=== PATIENT | female | born 1960 | race Caucasian/White ===

== ENCOUNTER 2020-02-21 08:50 | Outpatient (CLI) | payer BC, SELFPAY ==
--- NOTE | ~2020-02-21 | MM_ITS ---
EXAMINATION: MM screening [facility] BI w catherine HISTORY: Screening mammogram TECHNIQUE: Craniocaudal and mediolateral oblique 3-D tomosynthesis images were obtained and synthetic 2-D images were generated. CAD analysis was submitted and interpreted. COMPARISON: No prior mammogram is available for comparison at this institution. BREAST PARENCHYMAL COMPOSITION: There are scattered areas of fibroglandular density. FINDINGS: There is no evidence of suspicious mass, calcification, or architectural distortion to sugg est malignancy in either breast. There has been no suspicious interval change. IMPRESSION: 1. No mammographic evidence of malignancy. 2. Recommend routine screening mammography in one year. BI-RADS Category 1: Negative Reviewed, dictated and finalized at location B. BLASTER
== END 2020-02-21 08:51 | disposition home or self-care (01) ==
LOC: ANHIMG 08:52
PROVIDERS: PCP Emergency Medicine; Visit Provider Emergency Medicine
DX: Z12.31 Encounter for screening mammogram for malignant neoplasm of breast (principal)
CPT/HCPCS: 77063; 77067

== ENCOUNTER 2021-11-11 08:01 | Outpatient (CLI) | payer BC, SELFPAY ==
--- NOTE | ~2021-11-11 | MM_ITS ---
EXAMINATION: MM screening [facility] BI w catherine HISTORY: Screening mammogram TECHNIQUE: Craniocaudal and mediolateral oblique 3-D tomosynthesis images were obtained and synthetic 2-D images were generated. CAD analysis was submitted and interpreted. COMPARISON: 02/21/2020, 02/14/2018, 11/25/2016 bilateral screening mammogram examinations BREAST PARENCHYMAL COMPOSITION: There are scattered areas of fibroglandular density. FINDINGS: There is no evidence of suspicious mass, calcification, or architectural distortion to sugg est malignancy in either breast. There has been no suspicious interval change. IMPRESSION: 1. No mammographic evidence of malignancy. 2. Recommend routine screening mammography in one year. BI-RADS Category 1: Negative Reviewed, dictated and finalized at location A.
== END 2021-11-11 08:02 | disposition home or self-care (01) ==
PROVIDERS: PCP Family Medicine; Visit Provider Physician Assistant Medical
DX: Z12.31 Encounter for screening mammogram for malignant neoplasm of breast (principal)
CPT/HCPCS: 77063; 77067

== ENCOUNTER 2022-02-27 00:46 | Day surgery (SDC) | payer BC, SELFPAY ==
[2022-02-18 10:56] VITALS: BMI 37.0
--- NOTE | 2022-02-26 13:52 | WPDANESEPPF ---
Anes - Initial Pre Proc Eval Procedure: Operation Date: 02/27/22 11:30 Proposed Procedures p Screening Colonoscopy - Fransisco Uriostegui MD Date/Time: 02/26/22 13:52 Surgeon: Fransisco Uriostegui MD Pre Op Diagnosis: neoplasm screening Patient Data Age: 61 Gender: F Height: 1.75 m Weight: 113.6 kg Allergies Allergy/AdvReac Type Severity Reaction Status Date / Time sulfanilamide Allergy Severe DIARRHEA, Verified 02/27/22 10:47 HIVES Home Medications Medication Instructions Recorded Confirmed Type fluticasone propionate 50 See Rx Instructions .Route 07/24/20 02/27/22 Rx mcg/actuation nasal .COMPLEX #15.8 mL spray,suspension multivitamin 1 cap PO DAILY 02/18/22 02/27/22 History Patient hx anesthesia problems: none Family hx anesthesia problems: none Results Review: All pre-operative results and documents have been reviewed as part of the pre-operative evaluation. [facility] Past Medical History Medical History (Updated 09/30/21 @ 09:29 by Teri Patino [facility]) Acute rhinosinusitis Anxiety and depression Bursitis of hip, right Cataracts, bilateral Chronic frontal sinusitis Cough Encounter for screening colonoscopy Major depressive disorder, single episode, unspecified OA (osteoarthritis) of finger Obesity, unspecified (03/12/15) Oral thrush Oropharyngeal dysphagia Other fatigue Sensation of fullness in both ears Vertigo Vitamin D deficiency disease Family History Family History (Updated 09/30/21 @ 09:30 by Teri Patino [facility]) Father Hypertension Cerebrovascular accident Carcinoma of colon Sibling Hypertension Sibling Hypertension Other Asthma Depression Family history of arthritis Social History Social History (Updated 09/30/21 @ 09:31 by Teri Patino [facility]) Social History: Patient drinks 2 cups of caffeine daily. She exercises 3 times per week. 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 Gender identity (if verbalized by the patient): Female Sexual Orientation (if Verbalized by the Patient): Straight or Heterosexual Spiritual care concerns: No Anes - Eval Final PreProcedure Day of Procedure 02/26/22 13:52 Patient weight: obese Heart: regular rate and rhythm Lungs: clear to auscultation Airway: Mallampati scale class II Neurological: alert and oriented Last oral intake: >/= 8 hours ASA classification: II Emergent: no Anesthetic plan: proceed Anesthesia type and monitoring: general GIVS and standard monitoring Results Review: All pre-operative results and documents have been reviewed as part of the pre-operative evaluation. Informed Consent: The patient's anesthetic plan and its attendant risks and benefits were discussed with the patient/family/POA. Questions were solicited and answers provided to the satisfaction of the patient/family/POA.
--- NOTE | 2022-02-26 14:03 | PM.HPGS ---
History of Present Illness History of Present Illness Consent: Risks, benefits, and alternatives have been discussed and questions answered. Patient agrees to proceed with procedure. Chief complaint: neoplasm screening Narrative: Melani Feldman is a 61 year old female referred for colon cancer screening. She had a polyp removed about 12 years ago. Her last colonoscopy was 6 or 7 years ago. Review of Systems Review of Systems: All systems reviewed & are unremarkable except as noted in HPI and below PMFSH Past Medical History Medical History Acute rhinosinusitis Anxiety and depression Bursitis of hip, right Cataracts, bilateral Chronic frontal sinusitis Cough Encounter for screening colonoscopy Major depressive disorder, single episode, unspecified OA (osteoarthritis) of finger Obesity, unspecified (03/12/15) Oral thrush Oropharyngeal dysphagia Other fatigue Sensation of fullness in both ears Vertigo Vitamin D deficiency disease Family History Family History Father Hypertension Cerebrovascular accident Carcinoma of colon Sibling Hypertension Sibling Hypertension Other Asthma Depression Family history of arthritis Social History Social History Social History: Patient drinks 2 cups of caffeine daily. She exercises 3 times per week. 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 Gender identity (if verbalized by the patient): Female Sexual Orientation (if Verbalized by the Patient): Straight or Heterosexual Spiritual care concerns: No Meds Home Medications and Allergies Home Medications Medication Instructions Recorded Confirmed Type fluticasone propionate 50 See Rx Instructions .Route 07/24/20 02/27/22 Rx mcg/actuation nasal .COMPLEX #15.8 mL spray,suspension multivitamin 1 cap PO DAILY 02/18/22 02/27/22 History Allergies Allergy/AdvReac Type Severity Reaction Status Date / Time sulfanilamide Allergy Severe DIARRHEA, Verified 02/27/22 10:47 HIVES Exam Resp: Auscultation: clear to auscultation bilaterally Cardio: Rate: regular rate Rhythm: regular rhythm GI: GI Palp: Yes Soft to palpation and No Tenderness to palpation present (GI) Assessment and Plan Assessment and plan (1) Colon cancer screening: Code(s): Z12.11 - Encounter for screening for malignant neoplasm of colon Status: Acute Assessment and Plan: Colonoscopy with possible biopsy or polypectomy or cautery or injection of substances.
[2022-02-27] MEDS: LACTATED RINGERS 1,000 ML 150 ML IV CONT (10:53)
[2022-02-27 10:54] VITALS: BP 151/83; PULSE 77; RESP 18; TEMP 36.2; O2SAT 97
[2022-02-27 11:27] VITALS: BP 97/55; PULSE 71; RESP 19; O2SAT 97
[2022-02-27 11:37] VITALS: BP 108/62; PULSE 65; RESP 19; O2SAT 94
[2022-02-27 11:47] VITALS: BP 107/69; PULSE 61; RESP 15; O2SAT 96
== END 2022-02-27 11:51 | disposition home or self-care (01) ==
PROVIDERS: PCP Family Medicine; Visit Provider Internal Medicine Gastroenterology
PROC: 0DJD8ZZ Inspection of Lower Intestinal Tract, Via Natural or Artificial Opening Endoscopic (ICD-10-PCS; CPT 45378; principal; 2022-02-27 11:30)
DX: Z12.11 Encounter for screening for malignant neoplasm of colon (principal); D12.5 Benign neoplasm of sigmoid colon; D12.8 Benign neoplasm of rectum; K57.30 Diverticulosis of large intestine without perforation or abscess without bleeding; E66.9 Obesity, unspecified; Z68.37 Body mass index [BMI] 37.0-37.9, adult; E55.9 Vitamin D deficiency, unspecified
CPT/HCPCS: 45380; 45385; 88305; J2704; J7120

== ENCOUNTER 2022-05-04 13:46 | Outpatient (CLI) | payer BC, SELFPAY ==
--- NOTE | ~2022-05-04 | CT_ITS ---
EXAMINATION: CT brain wo con DATE: 05/04/2022 14:05 INDICATION: headache x 3 weeks . TECHNIQUE: Computed tomography (CT) of the head was performed without intravenous contrast. The mA wa s adjusted according to patient size. Iterative reconstruction technique was employed. The dose-lengt h product was 605.33 mGy-cm. COMPARISON: None. FINDINGS: No acute intracranial hemorrhage or extra-axial fluid collection. No hydrocephalus, mass, or herniation. No acute ischemic infarct. Unremarkable dural venous sinus attenuation. No acute osseous abnormality. The aerated spaces are clear. Mild atrophy and chronic white matter change. Right basal ganglia calcification. Bilateral lens repla cements. IMPRESSION: No acute intracranial process. Reviewed, dictated and finalized at location K.
== END 2022-05-04 13:47 | disposition home or self-care (01) ==
PROVIDERS: PCP Family Medicine; Visit Provider Physician Assistant Medical
DX: R51.9 Headache, unspecified (principal)
CPT/HCPCS: 70450

== ENCOUNTER 2023-02-26 07:54 | Outpatient (CLI) | payer BC, SELFPAY ==
--- NOTE | ~2023-02-26 | MM_ITS ---
EXAMINATION: MM screening [facility] BI w catherine HISTORY: Screening mammogram TECHNIQUE: Craniocaudal and mediolateral oblique 3-D tomosynthesis images were obtained and synthetic 2-D images were generated. CAD analysis was submitted and interpreted. COMPARISON: 11/11/2021, 02/21/2020, 02/14/2018 BREAST PARENCHYMAL COMPOSITION: The breasts are almost entirely fatty.0 FINDINGS: No suspicious mass, calcification, or architectural distortion are identified in either romel ast to suggest malignancy. There has been no suspicious interval change. IMPRESSION: 1. No mammographic evidence of malignancy. 2. Recommend routine screening mammography in one year. BI-RADS Category 1: Negative Reviewed, dictated and finalized at location A. FLOORMAN
== END 2023-02-26 07:55 | disposition home or self-care (01) ==
LOC: ANHIMG 07:57
PROVIDERS: PCP Family Medicine; Visit Provider Physician Assistant Medical
DX: Z12.31 Encounter for screening mammogram for malignant neoplasm of breast (principal)
CPT/HCPCS: 77063; 77067

== ENCOUNTER 2024-05-08 09:03 | Outpatient (CLI) | payer MEDICARE, BC, SELFPAY ==
--- NOTE | ~2024-05-08 | MM_ITS ---
EXAMINATION: MM screening [facility] BI w catherine HISTORY: Screening TECHNIQUE: Craniocaudal and mediolateral oblique 3-D tomosynthesis images were obtained and synthetic 2-D images were generated. CAD analysis was submitted and interpreted. COMPARISON: 02/26/2023 and dating back to 02/14/2018 BREAST PARENCHYMAL COMPOSITION: There are scattered areas of fibroglandular density. FINDINGS: Punctate calcifications are detected bilaterally, stable and benign in appearance. Stable parenchymal pattern without suspicious microcalcifications, architectural distortion, discrete masses or significant asymmetry. IMPRESSION: 1. No mammographic evidence of malignancy. 2. Recommend routine screening mammography in one year. BI-RADS Category 2: Benign finding(s). Reviewed, dictated and finalized at location A.
--- OUTSIDE RECORDS SUMMARY | 2024-05-08 09:50 | XMS_ITS | Encounter Summary ---
Author Organization [facility] Health Address [address] [place] [address] Care Team Providers Care Manager Net Name Role Phone Unavailable Primary Care Provider Unavailabl e Encounter Details Date Type Department Care Team (Late st Contact Info) Description 06/11/2017 Lab Requisition [facility] Care DermPath Lab [address], [address] [place] [address] Grey Carbone MD [address] [place], [place] [id number] Social History Tobacco Use Types Packs/Day Years Used Date Smoking Tobacco: Never Assessed Sex and Gender Information Value Date Recorded Sex Assigned at Not on file Gender Identity Not on file Sexual Orientation Not on file documented as of this encounter Plan of Treatment Not on file documented as of this encounter Procedures Procedure Name Priority Date/Time Associated Diagnosis Comments DERMATOPATHOLOGY Routine 06/10/2017 12:0 0 AM CDT documented in this encounter Results * DERMATOPATHOLOGY (06/10/2017 12:00 AM CDT) Case Report Dermatopathology Report Case: [id number] Authorizing Provider: Grey Carbone MD Collected: 06/10/2017 12:00 AM Pathologist: Corinne Porras MD Received: 06/11/2017 12:35 PM Specimen: Skin, anterior lower neck 8 12:19 PM CDT DERMATOPATHOLOGY LABORATORY Final Diagnosis Specimen A. SKIN, anterior lower neck: VERRUCA VULGARIS (B07.8) APPROXIMATES MARGIN 8 12:19 PM CDT DERMATOPATHOLOGY LABORATORY Clinical History R/O ISK, BCC, SCC Check margins 8 12:19 PM CDT DERMATOPATHOLOGY LABORATORY Gross Description Specimen A: Received is one formalin filled container labeled with the patient's name and designated anteror lower neck. The specimen consists of a shave biopsy measuring 6x5x3 mm, inked. Jar 0. 12:19 PM T DERMATOPATHOLOGY LABORATORY Microscopic Description Specimen A. SKIN, anterior lower neck: There is digitated epidermal hyperplasia, hypergranulosis, vacuolated granular layer cells, and compact hyperorthokeratosis . This lesion approximates the margin of the specimen. 8 12:19 PM T DERMATOPATHOLOGY LABORATORY Disclaimer An external and internal positive and negative controls are appropriate for the histochemical, immunohistochemical and immunofluorescence stain(s) in this case (if any), except where stated explicitly. The performance characteristics of the stain(s) cited in this report were developed and its performance characteristic determined by the Dermatopathology Laboratory at [facility]. These tests need not be, and therefore are not, approved by the [place] Food and Drug Administration. The tests are used for clinical purposes. Billing Codes Specimen Charges Stain Charges 53809 1 8 12:19 PM CDT DERMATOPATHOLOGY LABORATORY Embedded Images 12:19 PM T DERMATOPATHOLOGY LABORATORY Pathology/Cytolog y TISSUE SPECIMEN FROM SKIN / Unknown 06/10/2017 06/11/2017 12:35 PM CDT Grey Carbone MD LAB - PATHOLOGY/CYTO LOGY ORDERABLES DERMATOPATHOLOGY LABORATORY [facility] - Department of Dermatology [address] [place] [address], [address] [place] [address], [facility] [phone] documented in this encounter Visit Diagnoses Not on filedocumented in this encounter
--- OUTSIDE RECORDS SUMMARY | 2024-05-08 09:50 | XMS_ITS | Clinical Summary ---
Author Organization [facility] Address [address] [place] [address] Care Team Providers Care Biofuels Technology Manager Name Role Phone Morenita Turner MD Primary Care Provider [phone] Allergies No known active allergies Medications PARoxetine (PAXIL) 10 mg tablet Take 10 mg by mouth. 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 0 11/06/2016 Generalized anxiety disorder 07/01/2013 Overview (05/20/2016): GENERALIZED ANXIETY DIS Fracture of tibial plateau 07/01/2013 Overview (05/21/2016): Fracture, tibial plateau Resolved Problems Problem Noted Date Diagnosed Date Resolved Date Bilateral posterior capsular opacification 03/02/2018 10/24/2022 Immunizations Immunization Administration Dates Next Due Td, adsorbed 02/04/1996 Tdap 02/04/2010 Surgical History Surgery Date Site/Laterality Comments CATARACT EXTRACTION INTRAOCULAR LENS INSERTION Medical History Medical History Date Comments Glaucoma suspect OU 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 Family History Medical History Relation Name Comments Colon cancer Father Cancer, colon; Glaucoma Mother's Sister Breast cancer Paternal Grandmother Cancer , breast; Relation Name Status Comments Father Mother's Sister Paternal Grandmother Social History Tobacco Use Types Packs/Day Years Used Date Smoking Tobacco: Never Smokeless Tobacco: Never Comments Unknown Sex and Gender Information Value Date Recorded Sex Assigned at Not on file 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 Gender Identity Not on file Sexual Orientation Not on file Obstetrics History Plan of Treatment Health Maintenance Due Date Last Done Comments Breast Cancer Screening-Mammogram 1960 Cervical Cancer Screening 1958 Depression Screening 1958 Fall Risk Assessment 1958 Hepatitis C Screening 1958 Osteoporosis Screening-Bone Density Scan 1958 Hepatitis B Screening 1976 Pneumococcal vaccine 65+ (1 of 1 - PCV) 2008 Zoster Vaccine (1 of 2) 2008 DTaP/Tdap/Td Vaccine (2 - Td or Tdap) 02/05/2020 02/04/2010, 02/04/1996 Well Visit 65+ 07/28/2023 Influenza Vaccine (#1) 2023 12/30/2019 Colon Cancer Screening-Colonoscopy 12/27/2023 12/26/2013, 12/26/2013, 09/25/2010 Colon Cancer Screening-CT Colonography Discontinued 12/26/2013, 12/26/2013, 09/25/2010 Colon Cancer Screening-DNA Stool Discontinued 12/26/2013, 12/26/2013, 09/25/2010 Colon Cancer Screening-FIT Discontinued 12/26, 12/26/2013, 09/25/2010 Colon Cancer Screening-Sigmoidoscopy Discontinue d 12/26/2013, 12/26/2013, 09/25/2010 Procedures Procedure Name Priority Date/Time Associated Diagnosis Comments COLONOSCOPY IMAGES 12/26/2013 from Last 3 Months or Most Recently Relevant to Health Maintenance Results * COLONOSCOPY IMAGES (12/26/2013) Anatomical Region Laterality Modality Other Narrative 12/26/2013 Ordered by an unspecified provider. us Historical Provider GI PROCEDURE ORDERABLES F inal Result from Last 3 Months or Most Recently Relevant to Health Maintenance Insurance [facility] FEDERAL MEDICARE Care Teams Biofuels Technology Manager Relationship Specialty Start Date End Date Morenita Turner MD [address] [place] [address] PCP - General Family Medicine 11/02/23
--- OUTSIDE RECORDS SUMMARY | 2024-05-08 09:50 | XMS_ITS | Referral Summary ---
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 Historical Provider GI PROCEDURE ORDERABLES F inal Result from Last 3 Months or Most Recently Relevant to Health Maintenance Insurance [facility] MEDICARE Care Teams Belt Puncher Relationship Specialty Start Date End Date Morenita Turner MD [address] [place] [address] PCP - General Family Medicine 11/02/23
--- OUTSIDE RECORDS SUMMARY | 2024-05-08 09:50 | XMS_ITS | Clinical Summary ---
Author Organization [facility] Address [address] [place] [address] Care Team Providers Care Line Prep Cook Name Role Phone Unavailable Primary Care Provider Unavailabl e Source Comments [facility],non-owned Affiliates and Associated Physician Practices is amultiple site organization consisting of ambulatory clinics and hospital sitesin [place], [place], [place] and [place]. This disclosure is being madepursuant to the Care Everywhere program and may not contain all information available regarding this patient. Last updated 17.[facility] [employer] Allergies No known active allergies Medications * Be aware that medications may not be up to date on this document. Alwaysverify current medications with the patient. Medication Sig Dispensed Refills Start Date End Date Status PARoxetine (PAXIL) 10 MG tablet Take 10 mg by mouth once daily Active Social History Tobacco Use Types Packs/Day Years Used Date Smoking Tobacco: Never Assessed Sex and Gender Information Value Date Recorded Sex Assigned at Not on file Gender Identity Not on file Sexual Orientation Not on file Last Filed Vital Signs Vital Sign Reading Time Taken Comments Blood Pressure 126/82 10/23/2016 7:50 AM CDT Pulse 68 10/23/2016 7:50 AM CDT Temperature 36.7 C (98.1 F) 10/23/2016 7:50 AM CDT Respiratory Rate - - Oxygen Saturation 95% 10/23/2016 7:50 AM CDT Inhaled Oxygen Concentration - - Weight 113.4 kg (250 lb) 10/23/2016 7:50 AM CDT Height 175.3 cm (5' 9 ) 10/23/2016 7:50 AM CDT Body Mass Index 36.92 10/23/2016 7:50 AM CDT Plan of Treatment Health Maintenance Due Date Last Done Comments BONE DENSITY TESTING 1960 COLOGUARD (AGES 45-75) - COL ON CA SCREENING 1958 COLON MONITORING 1958 COLONOSCOPY - COLON CA SCREENING 1958 CT COLONOGRAPHY - COLON CA SCREENING 1958 Colorectal Cancer Screening 1958 FIT - COLON CA SCREENING 1958 FLEX SIG - COLON CA SCREENING 1958 LIPID TESTING 1958 MAMMOGRAM 1958 PAP SMEAR 1958 HIV SCREENING 1973 HEPATITIS C SCREENING 07/22/1976 DTAP/TDAP/TD VACCINES (1 - Tdap) 1977 PNEUMOCOCCAL VACCINE 50+ (1 of 1 - PCV) 2008 ZOSTER VACCINE (1 of 2) 2008 SCREENING FOR DIABETES 10/23/2016 COVID-19 VACCINE ( - 2023-2 5 season) 2023 INFLUENZA VACCINE (#1) 2023 DEPRESSION SCREENING 02/16/2024 Respiratory Syncytial Virus (RSV) Vaccine Pt: or over 60 yrs (1 - 1-dose 75+ series) 2033 HEPATITIS B VACCINE Aged Out No longe r eligible based on patient's age to complete this topic HIB VACCINE Aged Out No longer eligi ble based on patient's age to complete this topic HPV VACCINE Aged Out No longer eligi ble based on patient's age to complete this topic MENINGOCOCCAL (Group B) VACC INE SHARED DECISION-MAKING Aged Out No longer eligibl e based on patient's age to complete this topic MENINGOCOCCAL GROUPS A/C/Y/W VACCINE Aged Out No longer eligible b ased on patient's age to complete this topic
== END 2024-05-08 09:04 | disposition home or self-care (01) ==
LOC: ANHIMG 09:05
PROVIDERS: PCP Family Medicine; Visit Provider Family Medicine
DX: Z12.31 Encounter for screening mammogram for malignant neoplasm of breast (principal)
CPT/HCPCS: 77063; 77067

== ENCOUNTER 2024-06-01 11:09 | Outpatient (CLI) | payer MEDICARE, BC, SELFPAY ==
--- NOTE | ~2024-06-01 | DEXA_ITS ---
Bone Density Report Name: STAR JIMENEZ Age: 63 Sex: Female Ethnicity: White Date of : 1960 Indication: postmenopausal; screening for osteoporosis; height loss; Referring Provider: SHELIA HERRERA Study: Bone densitometry was performed. Exam Date: June 01, 2024 Accession number: [id number] Bone Density: Region BMD T-score Z-score Classification AP Spine(L1-L4) 1.028 -0.2 1.6 Normal Femoral Neck (Left) 0.757 -0.8 0.7 Normal Total Hip (Left) 0.988 0.4 1.6 Normal Femoral Neck (Right) 0.741 -1.0 0.6 Normal Total Hip (Right) 0.910 -0.3 1.0 Normal Total Hip Mean 0.949 0.1 1.3 Normal World Health Organization criteria for BMD impression classify patients as: Normal (T-score at or above -1.0), Osteopenia (T-score between -1.0 and -2.5), or Osteoporosis (T-score at or below -2.5). 10-year Fracture Risk: FRAX not reported because: All T-scores for Spine Total, Hip Total, Femoral Neck at or above -1.0 Clinical Information Provided by Patient: Has used the following medications: Vitamin D Patient maximum height was 69 Menopause Age: 48 No regular weight bearing exercise Drinks caffeinated beverages Onset of menses at age 9 Number of children 0 Impression: The patient has normal bone mass. Discussion: BONE DENSITY IS ABOVE THE MINIMUM DESIRABLE LEVEL AT ALL SKELETAL SITES TESTED. This patient?s bone mineral density is above the minimum desirable level (T-score -1.0 or better) at all sites measured. The patient should follow a healthful lifestyle (good nutrition with adequate calcium and vitamin D, and appropriate weight-bearing exercise). Follow-Up: Consider repeating this study in 5 years or sooner if there is some new clinical indication. Reported by: LEO on 06/01/2024 11:52:00 AM. Reviewed, dictated and finalized at location [facility]
--- OUTSIDE RECORDS SUMMARY | 2024-06-01 12:05 | XMS_ITS | Encounter Summary ---
Author Organization [facility] Address [address] [place] [address] Care Team Providers Care Technical Operations Vice President Name Role Phone Unavailable Primary Care Provider Unavailabl e Encounter Details Date Type Department Care Team (Late st Contact Info) Description 06/11/2017 Lab Requisition [facility] Care DermPath Lab [address], [facility] [place] [address] Grey Carbone MD [address] [place] [address] Social History Tobacco Use Types Packs/Day Years Used Date Smoking Tobacco: Never Assessed Comments Unknown Sex and Gender Information Value Date Recorded Sex Assigned at Not on file Legal Sex Female 4:53 AM CDT Gender Identity Not on file Sexual Orientation Not on file documented as of this encounter Plan of Treatment Not on file documented as of this encounter Procedures Procedure Name Priority Date/Time Associated Diagnosis Comments DERMATOPATHOLOGY Routine 06/10/2017 12:0 0 AM CDT documented in this encounter Results * DERMATOPATHOLOGY (06/10/2017 12:00 AM CDT) Case Report Dermatopathology Report Case: [id number] Authorizing Provider: Grey Carbone MD Collected: 06/10/2017 12:00 AM Pathologist: Corinne Porras MD Received: 06/11/2017 12:35 PM Specimen: Skin, anterior lower neck 8 12:19 PM CDT DERMATOPATHOLOGY LABORATORY Final Diagnosis Specimen A. SKIN, anterior lower neck: VERRUCA VULGARIS (B07.8) APPROXIMATES MARGIN 12:19 PM CDT DERMATOPATHOLOGY LABORATORY Clinical History R/O ISK, BCC, SCC Check margins 12:19 PM CDT DERMATOPATHOLOGY LABORATORY Gross Description [...] lesion approximates the margin of the specimen. 12:19 PM T DERMATOPATHOLOGY LABORATORY Disclaimer An external and internal positive and negative controls are appropriate for the histochemical, immunohistochemical and immunofluorescence stain(s) in this case (if any), except where stated explicitly. The performance characteristics of the stain(s) cited in this report were developed and its performance characteristic determined by the Dermatopathology Laboratory at [facility]. These tests need not be, and therefore are not, approved by the [place] Food and Drug Administration. The tests are used for clinical purposes. Billing Codes Specimen Charges Stain Charges 38291 1 12:19 PM CDT DERMATOPATHOLOGY LABORATORY Embedded Images 12:19 PM CDT DERMATOPATHOLOGY LABORATORY Pathology/Cytolog y TISSUE SPECIMEN FROM SKIN / Unknown 06/10/2017 06/11/2017 12:35 PM CDT us Grey Carbone MD LAB - PATHOLOGY/CYTOLOGY ORD ERABLES Final Result DERMATOPATHOLOGY LABORATORY [facility] - Department of Dermatology [address] [place] [address], [address] [place] [address], [facility] [phone] documented in this encounter Visit Diagnoses Not on filedocumented in this encounter
--- OUTSIDE RECORDS SUMMARY | 2024-06-01 12:05 | XMS_ITS | Clinical Summary ---
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
--- OUTSIDE RECORDS SUMMARY | 2024-06-01 12:05 | XMS_ITS | Referral Summary ---
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
--- OUTSIDE RECORDS SUMMARY | 2024-06-01 12:06 | XMS_ITS | Clinical Summary ---
Author Organization [facility] Address [address] [place] [address] Care Team Providers Care Project Asst Name Role Phone Unavailable Primary Care Provider Unavailabl e Source Comments [facility],non-owned Affiliates and Associated Physician Practices is amultiple site organization consisting of ambulatory clinics and hospital sitesin [place], [place], [place] and [place]. This disclosure is being madepursuant to the Care Everywhere program and may not contain all information available regarding this patient. Last updated 17.[facility] [employer] Allergies No known active allergies Medications * Be aware that medications may not be up to date on this document. Alwaysverify current medications with the patient. PARoxetine (PAXIL) 10 MG tablet Take 10 [...] VACCINE ( - 2023-2 5 season) 2023 DEPRESSION SCREENING 02/16/2024 INFLUENZA VACCINE (Season Ended) 2024 Respiratory Syncytial Virus (RSV) Vaccine Pt: or [...] on patient's age to complete this topic Insurance [facility] Member Subscriber Plan / Payer (Ef fective 2021-Present) Name:Star Feldman Relation to Subscriber:Self Name:STAR FELDMAN Payer ID:[id number] (IC) Group ID:[id number] Type:PPO Address: [address] [place] [id number]
== END 2024-06-01 11:10 | disposition home or self-care (01) ==
PROVIDERS: PCP Family Medicine; Visit Provider Family Medicine
DX: Z78.0 Asymptomatic menopausal state (principal)
CPT/HCPCS: 77080